=== PATIENT | male | born 1990 | race African-American/Black ===

== ENCOUNTER 2017-09-10 02:26 | Emergency (ER) | payer OTHER ==
[~2017-09-10] VITALS: Ht 177.8 cm; Wt 70.0 kg
[2017-09-10 04:16] VITALS: BP 135/72
== END 2017-09-10 06:06 | disposition left against medical advice (07) ==
LOC: ER 02:26
DX: Z76.0 Encounter for issue of repeat prescription (principal); F20.9 Schizophrenia, unspecified
CPT/HCPCS: 99281